=== PATIENT | male | born 1975 | race Caucasian/White ===

== ENCOUNTER 2016-08-14 22:02 | Emergency (ER) | payer SELFPAY ==
[~2016-08-14] VITALS: Ht 170.2 cm; Wt 74.0 kg
[2016-08-14 22:24] VITALS: Ht 170.2 cm; Wt 74.0 kg
[2016-08-14] MEDS ORDERED: NIZ30CR2 TOP (23:49)
--- NOTE | 2016-08-15 00:10 | ERA ---
ER Documentation Chief Complaint Date/Time DATE: 08/15/16 TIME: 00:06 Chief Complaint testicular burning x 2 months HPI 41-year-old otherwise healthy male with a two-month chief complaint of periodic pelvic rash. Has used Benadryl and hydrocortisone cream with no relief. Patient denies fever, difficulty urinating, testicular pain, discharge, dysuria or multiple sexual partners. ROS All systems reviewed and are negative except as per history of present illness. Medications Home Meds Active Scripts Ketoconazole* (Nizoral*) 2%-30 Gm Cream..g., 1 APPLIC TOP TID for 14 Days, TUB Prov:JULISA OLGUIN PA-C 08/14/16 PMhx/Soc Medical and Surgical Hx: pt denies Medical Hx, pt denies Surgical Hx History of Surgery: No Anesthesia Reaction: No Hx Neurological Disorder: No Hx Respiratory Disorders: No Hx Cardiac Disorders: No Hx Psychiatric Problems: No Hx Miscellaneous Medical Probl: No Hx Alcohol Use: No Hx Substance Use: No Hx Tobacco Use: No Smoking Status: Never smoker Physical Exam Vitals Vital Signs Date Time Temp Pulse Resp B/P Pulse Ox O2 Delivery O2 Flow Rate FiO2 08/14/16 22:24 98.3 72 18 143/90 100 Physical Exam Const: Well-appearing 41-year-old male in no acute distress Head: Atraumatic Eyes: Normal Conjunctiva ENT: Normal External Ears, Nose and Mouth. Neck: Full range of motion..~ No meningismus. Resp: Clear to auscultation bilaterally Cardio: Regular rate and rhythm, no murmurs Abd: Soft, non tender, non distended. Normal bowel sounds Skin: Rash covering the entire pelvic area around the hairline. Color is purplish, slightly raised. No petechiae or rashes Back: No midline or flank tenderness Ext: No cyanosis, or edema Neur: Awake and alert Psych: Normal Mood and Affect Procedures/MDM Well-appearing 41-year-old male in no acute distress presenting with a pelvic rash as described in history and physical examination. Signs and symptoms and history are most consistent with folliculitis versus tinea cruris. At this time I very low suspicion for systemic involvement. Patient's condition will be treated with topical antifungals. Have advised the patient to continue Benadryl for itch relief. Patient has been educated on the use of antifungals and warning signs for return. Patient will be given discharge instructions with return precautions. Departure Diagnosis: Primary Impression: Tinea cruris Condition: Stable Patient Instructions: Tinea Cruris, General Additional Instructions: Follow up with your PCP within the next 1-3 days for a more thorough evaluation and a possible referral to a specialist. Return the the emergency department immediately if symptoms worsen or change. If you have any questions regarding medications, ask your pharmacist or us before you leave. If any adverse reactions occur while taking your medications, discontinue the treatment and return to the emergency department immediately. Take your medications as directed, and complete the entire course of treatment. JULISA OLGUIN PA-C Aug 15, 2016 00:09
== END 2016-08-15 00:26 | disposition home or self-care (01) ==
LOC: FTE 22:02
DX: B35.6 Tinea cruris (principal)
CPT/HCPCS: 99283